=== PATIENT | female | born 2000 | race Asian ===

== ENCOUNTER 2023-01-14 08:09 | Emergency (ER) | payer OTHER ==
[~2023-01-14] VITALS: Ht 160 cm; Wt 86.4 kg
[2023-01-14] MEDS ORDERED: LEVO1TAB93 PO (08:15)
[2023-01-14] MEDS ORDERED: ACET-3385 PO (08:43)
[2023-01-14] MEDS ORDERED: NEOM10SO14 AD (08:43)
[2023-01-14] MEDS ORDERED: NEOMYCIN/POLYMYXIN B/HYDROCORT 10 ML OTIC SOLUTION AD ONE (08:45)
[2023-01-14] MEDS ORDERED: ACETAMINOPHEN 500 MG TABLET PO ONE (08:45)
[2023-01-14 09:38] VITALS: BP 137/84; PULSE 100; RESP 18; TEMP 97.8
== END 2023-01-14 09:40 | disposition home or self-care (01) ==
LOC: EMS 08:12
DX: H60.91 Unspecified otitis externa, right ear (principal); Z91.013 Allergy to seafood; Z91.010 Allergy to peanuts
CPT/HCPCS: 99283

== ENCOUNTER 2024-01-09 10:17 | Emergency (ER) | payer OTHER ==
[~2024-01-09] VITALS: Ht 170.2 cm; Wt 75.0 kg
[~2024-01-09 10:17] MED LIST: ACET-3385 PO; LEVO1TAB93 PO; NEOM10SO14 AD
[2024-01-09 10:20] VITALS: BP 147/90; PULSE 106; RESP 16; TEMP 98.5
[2024-01-09] MEDS ORDERED: METF-1211 PO (10:23)
[2024-01-09] MEDS: MAG HYDROX/ALUMINUM HYD/SIMETH ES 30 ML SUSPENSION UDCUP PO ONE (10:58)
[2024-01-09] MEDS ORDERED: FAMO20 PO (13:15)
== END 2024-01-09 13:29 | disposition home or self-care (01) ==
LOC: EMS 10:17
DX: K21.9 Gastro-esophageal reflux disease without esophagitis (principal); Z91.013 Allergy to seafood; Z91.010 Allergy to peanuts
CPT/HCPCS: 71045; 99283